=== PATIENT | male | born 1970 | race African-American/Black ===

== ENCOUNTER 2020-03-15 15:46 | Emergency (ER) | payer SELFPAY ==
--- NOTE | 2020-03-15 16:26 | EDM.PDOC ---
ED HPI GENERAL MEDICAL PROBLEM - General Chief Complaint: Abdominal Pain Stated Complaint: HIGHBLOOD SUGAR,WEAK,FEVER Time Seen by Provider: 03/15/20 15:56 Source of Information: Reports: Patient, RN Notes Reviewed - History of Present Illness INITIAL COMMENTS - FREE TEXT/NARRATIVE: 49 yr old male known to have type 2 diabetes on metformin that has been feeling weak, tired, "no energy" for the last 1 to 2 weeks. Mouth does feel dry. Voiding somewhat frequently. No cough, fever, chest pain or difficulty breathing. Lower Abdomen Pain Score (Numeric/FACES): 5 - Related Data Allergies Allergy/AdvReac Type Severity Reaction Status Date / Time No Known Allergies Allergy Verified 03/15/20 15:59 Home Meds: Home Meds SitaGLIPtin [Januvia] 100 mg PO DAILY #30 tab 03/15/20 [Rx] metFORMIN HCl [Metformin HCl] 1,000 mg PO DAILY 03/15/20 [History] Past Medical History HEENT History: Reports: None Cardiovascular History: Reports: None Respiratory History: Reports: None Gastrointestinal History: Reports: None Genitourinary History: Reports: None Musculoskeletal History: Reports: None Neurological History: Reports: None Psychiatric History: Reports: None Endocrine/Metabolic History: Reports: Diabetes, Type II Hematologic History: Reports: None Immunologic History: Reports: None Oncologic (Cancer) History: Reports: None Dermatologic History: Reports: None - Infectious Disease History Infectious Disease History: Reports: None Social & Family History - Tobacco Use Smoking Status *Q: Never Smoker - Caffeine Use Caffeine Use: Reports: Coffee - Recreational Drug Use Recreational Drug Use: No ED ROS GENERAL - Review of Systems Review Of Systems: See Below Constitutional: Reports: Malaise, Fatigue. Denies: Fever, Chills, Diaphoresis HEENT: Reports: Other (dry mouth) Respiratory: Denies: Shortness of Breath, Cough Cardiovascular: Denies: Chest Pain GI/Abdominal: Reports: Decreased Appetite. Denies: Abdominal Pain, Nausea, Vomiting Musculoskeletal: Reports: No Symptoms Skin: Reports: No Symptoms Neurological: Reports: No Symptoms ED EXAM, GENERAL - Physical Exam Exam: See Below General Appearance: Alert, No Apparent Distress Head: Atraumatic Neck: Supple Respiratory/Chest: No Respiratory Distress, Lungs Clear, Normal Breath Sounds Cardiovascular: Tachycardia GI/Abdominal: Soft, Non-Tender Extremities: Normal Inspection, Normal Range of Motion Neurological: Alert, Oriented, No Motor/Sensory Deficits Skin Exam: Warm, Dry Course - Vital Signs Last Recorded V/S: Last Vital Signs Temp 97.9 F 03/15/20 15:54 Pulse 110 H 03/15/20 15:54 Resp 18 03/15/20 15:54 BP 146/87 H 03/15/20 15:54 Pulse Ox 95 03/15/20 15:54 - Orders/Labs/Meds Orders: Active Orders 24 hr Category Date Time Status Blood Glucose Check, Bedside [RC] ONETIME Care 03/15/20 18:10 Active Sodium Chloride 0.9% [Normal Saline] 1,000 ml Med 03/15/20 16:30 Active IV ONETIME Medication Orders Sodium Chloride (Normal Saline) 1,000 mls @ 999 mls/hr IV ONETIME BEN Last Admin: 03/15/20 16:40 Dose: 999 mls/hr Documented by: ALBERTO Labs: Laboratory Tests 03/15/20 03/15/20 03/15/20 Range/Units 16:35 16:35 16:35 WBC 6.63 (4.23-9.07) K/mm3 RBC 6.11 H (4.63-6.08) M/mm3 Hgb 12.6 L (13.7-17.5) gm/dl Hct 37.6 L (40.1-51.0) % MCV 61.5 L (79.0-92.2) fl MCH 20.6 L (25.7-32.2) pg MCHC 33.5 (32.2-35.5) g/dl RDW Std Deviation 35.1 (35.1-43.9) fL Plt Count 192 (163-337) K/mm3 MPV 10.4 (9.4-12.3) fl Neut % (Auto) 73.7 H (34.0-67.9) % Lymph % (Auto) 14.3 L (21.8-53.1) % Sanborn % (Auto) 11.2 (5.3-12.2) % Eos % (Auto) 0 L (0.8-7.0) Baso % (Auto) 0.5 (0.1-1.2) % Neut # (Auto) 4.89 (1.78-5.38) K/mm3 Lymph # (Auto) 0.95 L (1.32-3.57) K/mm3 Sanborn # (Auto) 0.74 (0.30-0.82) K/mm3 Eos # (Auto) 0.00 L (0.04-0.54) K/mm3 Baso # (Auto) 0.03 (0.01-0.08) K/mm3 Manual Slide Review Abnormal smear Puncture Site ABG pH (7.35-7.45) ABG pCO2 (35.0-45.0) mmHg ABG pO2 (80.0-100.0) mmHg ABG HCO3 (22.0-26.0) meq/L ABG O2 Saturation (96.0-97.0) % ABG Base Excess (-2-2.0) Manuel Test A-a Gradient mmHg O2 Delivery Device Oxygen Flow Rate FiO2 (21.00-100.00) % Sodium 129 L (136-145) mEq/L Potassium 4.2 (3.5-5.1) mEq/L Chloride 93 L (98-107) mEq/L Carbon Dioxide 24 (21-32) mEq/L Anion Gap 16.2 H (5-15) BUN 12 (7-18) mg/dL Creatinine 1.4 H (0.7-1.3) mg/dL Est Cr Clr Drug Dosing 70.06 mL/min Estimated GFR (MDRD) > 60 (>60) mL/min BUN/Creatinine Ratio 8.6 L (14-18) Glucose 424 H (74-106) mg/dL POC Glucose (70-105) mg/dL Hemoglobin A1c (4.50-6.20) % Calcium 8.4 L (8.5-10.1) mg/dL Total Bilirubin 0.3 (0.2-1.0) mg/dL AST 29 (15-37) U/L ALT 32 (16-63) U/L Alkaline Phosphatase 98 (46-116) U/L Total Protein 7.6 (6.4-8.2) g/dl Albumin 2.8 L (3.4-5.0) g/dl Globulin 4.8 gm/dL Albumin/Globulin Ratio 0.6 L (1-2) TSH 3rd Generation 0.792 (0.358-3.74) uIU/mL 03/15/20 03/15/20 03/15/20 Range/Units 16:35 18:06 18:18 WBC (4.23-9.07) K/mm3 RBC (4.63-6.08) M/mm3 Hgb (13.7-17.5) gm/dl Hct (40.1-51.0) % MCV (79.0-92.2) fl MCH (25.7-32.2) pg MCHC (32.2-35.5) g/dl RDW Std Deviation (35.1-43.9) fL Plt Count (163-337) K/mm3 MPV (9.4-12.3) fl Neut % (Auto) (34.0-67.9) % Lymph % (Auto) (21.8-53.1) % Sanborn % (Auto) (5.3-12.2) % Eos % (Auto) (0.8-7.0) Baso % (Auto) (0.1-1.2) % Neut # (Auto) (1.78-5.38) K/mm3 Lymph # (Auto) (1.32-3.57) K/mm3 Sanborn # (Auto) (0.30-0.82) K/mm3 Eos # (Auto) (0.04-0.54) K/mm3 Baso # (Auto) (0.01-0.08) K/mm3 Manual Slide Review Puncture Site Rt radial ABG pH 7.43 (7.35-7.45) ABG pCO2 38.2 (35.0-45.0) mmHg ABG pO2 71.0 L (80.0-100.0) mmHg ABG HCO3 24.6 (22.0-26.0) meq/L ABG O2 Saturation 93.4 L (96.0-97.0) % ABG Base Excess 0.9 (-2-2.0) Manuel Test Positive A-a Gradient 30 mmHg O2 Delivery Device Room air Oxygen Flow Rate 0.0 FiO2 21.00 (21.00-100.00) % Sodium (136-145) mEq/L Potassium (3.5-5.1) mEq/L Chloride (98-107) mEq/L Carbon Dioxide (21-32) mEq/L Anion Gap (5-15) BUN (7-18) mg/dL Creatinine (0.7-1.3) mg/dL Est Cr Clr Drug Dosing mL/min Estimated GFR (MDRD) (>60) mL/min BUN/Creatinine Ratio (14-18) Glucose (74-106) mg/dL POC Glucose 342 H (70-105) mg/dL Hemoglobin A1c 12.00 H (4.50-6.20) % Calcium (8.5-10.1) mg/dL Total Bilirubin (0.2-1.0) mg/dL AST (15-37) U/L ALT (16-63) U/L Alkaline Phosphatase (46-116) U/L Total Protein (6.4-8.2) g/dl Albumin (3.4-5.0) g/dl Globulin gm/dL Albumin/Globulin Ratio (1-2) TSH 3rd Generation (0.358-3.74) uIU/mL 03/15/20 03/15/20 03/15/20 Range/Units 19:21 20:30 21:39 WBC (4.23-9.07) K/mm3 RBC (4.63-6.08) M/mm3 Hgb (13.7-17.5) gm/dl Hct (40.1-51.0) % MCV (79.0-92.2) fl MCH (25.7-32.2) pg MCHC (32.2-35.5) g/dl RDW Std Deviation (35.1-43.9) fL Plt Count (163-337) K/mm3 MPV (9.4-12.3) fl Neut % (Auto) (34.0-67.9) % Lymph % (Auto) (21.8-53.1) % Sanborn % (Auto) (5.3-12.2) % Eos % (Auto) (0.8-7.0) Baso % (Auto) (0.1-1.2) % Neut # (Auto) (1.78-5.38) K/mm3 Lymph # (Auto) (1.32-3.57) K/mm3 Sanborn # (Auto) (0.30-0.82) K/mm3 Eos # (Auto) (0.04-0.54) K/mm3 Baso # (Auto) (0.01-0.08) K/mm3 Manual Slide Review Puncture Site ABG pH (7.35-7.45) ABG pCO2 (35.0-45.0) mmHg ABG pO2 (80.0-100.0) mmHg ABG HCO3 (22.0-26.0) meq/L ABG O2 Saturation (96.0-97.0) % ABG Base Excess (-2-2.0) Manuel Test A-a Gradient mmHg O2 Delivery Device Oxygen Flow Rate FiO2 (21.00-100.00) % Sodium (136-145) mEq/L Potassium (3.5-5.1) mEq/L Chloride (98-107) mEq/L Carbon Dioxide (21-32) mEq/L Anion Gap (5-15) BUN (7-18) mg/dL Creatinine (0.7-1.3) mg/dL Est Cr Clr Drug Dosing mL/min Estimated GFR (MDRD) (>60) mL/min BUN/Creatinine Ratio (14-18) Glucose (74-106) mg/dL POC Glucose 313 H 342 H 250 H (70-105) mg/dL Hemoglobin A1c (4.50-6.20) % Calcium (8.5-10.1) mg/dL Total Bilirubin (0.2-1.0) mg/dL AST (15-37) U/L ALT (16-63) U/L Alkaline Phosphatase (46-116) U/L Total Protein (6.4-8.2) g/dl Albumin (3.4-5.0) g/dl Globulin gm/dL Albumin/Globulin Ratio (1-2) TSH 3rd Generation (0.358-3.74) uIU/mL Meds: Medications Generic Name Dose Route Start Last Admin Trade Name Freq PRN Reason Stop Dose Admin Sodium Chloride 1,000 mls @ 999 mls/hr 03/15/20 16:30 03/15/20 16:40 Normal Saline IV 999 mls/hr ONETIME BEN Administration Discontinued Medications Generic Name Dose Route Start Last Admin Trade Name Freq PRN Reason Stop Dose Admin Lactated Ringer's 1,000 mls @ 999 mls/hr 03/15/20 18:08 03/15/20 18:18 Ringers, Lactated IV 03/15/20 19:08 999 mls/hr .BOLUS ONE Administration Lactated Ringer's 500 mls @ 999 mls/hr 03/15/20 19:10 Ringers, Lactated IV 03/15/20 19:40 .BOLUS ONE Lactated Ringer's 1,000 mls @ 999 mls/hr 03/15/20 19:10 03/15/20 19:22 Ringers, Lactated IV 03/15/20 20:10 999 mls/hr .BOLUS ONE Administration Insulin Human Regular 10 unit 03/15/20 18:09 03/15/20 18:19 Humulin R SUBCUT 03/15/20 18:10 10 unit ONETIME ONE Administration Insulin Human Regular 12 unit 03/15/20 20:33 03/15/20 20:35 Humulin R SUBCUT 03/15/20 20:34 12 unit ONETIME ONE Administration - Re-Assessments/Exams Free Text/Narrative Re-Assessment/Exam: 03/15/20 18:02 glucose elevated at 424. Other chemistries are mostly OK. anion gap about 1 6.2, c02 24. He does not appear to be in ketoacidosis. Will Have given 1 liter NS, will continue with LR. will recheck a glucose now, will check ABG's, and than give insulin. 03/15/20 21:56. glucose 352 after 1 liter fluid, 313 after 2 liters fluid and 10 units regular sq. 342 1 hr later. 12 units regular sq given at that time. 1 further liter fluid given. 250 a short time ago. A1c 12. Have consulted with Dr Thorpe. Discharge instr. as documented. Departure - Departure Time of Disposition: 21:42 Disposition: Home, Self-Care 01 Condition: Fair Clinical Impression: Hyperglycemia due to diabetes mellitus - Discharge Information Prescriptions: SitaGLIPtin [Januvia] 100 mg PO DAILY #30 tab Instructions: Hyperglycemia, [id number] Referrals: PCP,Not In Area [Primary Care Provider] - Forms: ED Department Discharge Additional Instructions: Cut your metformin tabs in half, take 1/2 tab or 500 mg 3 times daily starting tonight. Levemir insulin 10 units 9 PM each evening. Sitagliptin 100 mg once daily. Check your blood sugar before each meal and also 2 hours after each meal, keep a record of those measurements for your follow up clinic appointment. See one of our [facility] medical providers at our [facility] medical clinic in 5 to 7 days, call [phone] for appointment in the morning. Return to ED as needed. Sepsis Event Note (ED) - Evaluation Sepsis Screening Result: No Definite Risk - Focused Exam Vital Signs: Vital Signs Temp Pulse Resp BP Pulse Ox 03/15/20 15:54 97.9 F 110 H 18 146/87 H 95 - My Orders Last 24 Hours: My Active Orders 03/15/20 16:30 Sodium Chloride 0.9% [Normal Saline] 1,000 ml IV ONETIME 03/15/20 18:10 Blood Glucose Check, Bedside [RC] ONETIME - Assessment/Plan Last 24 Hours: My Active Orders 03/15/20 16:30 Sodium Chloride 0.9% [Normal Saline] 1,000 ml IV ONETIME 03/15/20 18:10 Blood Glucose Check, Bedside [RC] ONETIME
[2020-03-15] MEDS ORDERED: Sodium Chloride 0.9% 1,000 ML IV SCH (16:30)
[2020-03-15] MEDS ORDERED: Lactated Ringers 1,000 ML IV ONE ×2 (18:08→19:10)
[2020-03-15] MEDS ORDERED: Insulin Regular, Human 100 Units/ML 3 ML Vial SUBCUT ONE ×2 (18:09→20:33)
[2020-03-15] MEDS ORDERED: Lactated Ringers 500 ML IV ONE (19:10)
== END 2020-03-15 22:00 | disposition home or self-care (01) ==
LOC: JD.ED 15:46
DX: E11.65 Type 2 diabetes mellitus with hyperglycemia (principal); R00.0 Tachycardia, unspecified
CPT/HCPCS: 36415; 36600; 80053; 82803; 82962; 83036; 84443; 85025; 96360; 96361; 99284; J1815; J7030; J7120

== ENCOUNTER 2020-06-30 17:25 | Emergency (ER) | payer SELFPAY ==
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
--- NOTE | 2020-07-01 09:05 | CT ---
Head CT Technique: Multiple axial sections through the brain were obtained. Intravenous contrast was not utilized. Comparison: No prior intracranial imaging is available. Findings: Ventricles along with basal cisterns and sulci over the convexities appear within normal limits for the patient's age. No abnormal parenchymal densities are seen. No midline shift or mass-effect is seen. Visualized mastoid sinuses as well as paranasal sinuses show nothing acute. No acute calvarial finding is appreciated. Impression: 1. Nothing acute is identified on noncontrast head CT study. Diagnostic code #1 I agree with preliminary report from [facility], finalized on 06/30/20, 8:07 PM REGISTERED MEDICAL ASSISTANT
--- NOTE | 2020-07-01 09:08 | CT ---
CT cervical spine Technique: Multiple axial sections were obtained from above C1 inferiorly to the bottom of T1. Reconstructed coronal and sagittal images were obtained. Findings: Mild degenerative change is seen between the dens and anterior arch of C1. There is moderate disc space narrowing at C5-6 with prominent anterior spurring as well as posterior spurring. Other lesser anterior osteophytes are seen within other portions of the cervical spine. There is very minimal degenerative apophyseal change being seen. No bony central or bony neural foraminal stenosis is appreciated. No abnormal subluxation is appreciated. Lucencies are seen through the center of the spinous process of C6-T1. These are symmetric and on the AP view show slight sclerosis and are most likely a normal variant. No additional fracture is appreciated. Impression: 1. Lucencies within the spinous process of C6-T1. As mentioned above, these are most likely developmental. MRI could confirm by looking for bone marrow edema. 2. Degenerative change. Nothing acute is otherwise seen. Diagnostic code #3 I questionably disagree with preliminary report from [facility], finalized on 06/30/20, 08:01 PM Central Daylight Time
== END 2020-06-30 20:25 | disposition home or self-care (01) ==
LOC: JD.ED 17:25
DX: S16.1XXA Strain of muscle, fascia and tendon at neck level, initial encounter (principal); R51.9 Headache, unspecified; E11.9 Type 2 diabetes mellitus without complications; V89.2XXA Person injured in unspecified motor-vehicle accident, traffic, initial encounter
CPT/HCPCS: 70450; 70450-26; 72125; 72125-26; 99283; 99284-25

== ENCOUNTER 2022-07-22 14:01 | Emergency (ER) | payer OTHER ==
[2022-07-22] MEDS ORDERED: Sodium Chloride 0.9% 10 ML Syringe FLUSH PRN ×2 (14:30→14:32)
[2022-07-22] MEDS ORDERED: Iopamidol 612 MG/ML 50 ML SDV IVPUSH ONE (14:31)
[2022-07-22] MEDS ORDERED: Iopamidol 612 MG/ML 100 ML Bottle IVPUSH ONE (14:31)
== END 2022-07-22 16:44 | disposition home or self-care (01) ==
LOC: JD.ED 14:01
DX: S20.211A Contusion of right front wall of thorax, initial encounter (principal); E11.9 Type 2 diabetes mellitus without complications; Z79.899 Other long term (current) drug therapy; V40.5XXA Car driver injured in collision with pedestrian or animal in traffic accident, initial encounter; Y92.410 Unspecified street and highway as the place of occurrence of the external cause
CPT/HCPCS: 36415; 71260; 74177; 80053; 83690; 84484; 85025; 99283; J3490; Q9967